=== PATIENT | male | born 1940 | race Caucasian/White ===

== ENCOUNTER 2016-04-22 08:25 | Day surgery (SDC) | payer MEDICARE, OTHER ==
[~2016-04-22] VITALS: Ht 177.8 cm; Wt 81.6 kg
[~2016-04-22 08:25] MED LIST: ASCO-294 PO; ASPI325T32 PO; BLUE500T PO; CHOL100045 PO; COD1CAPS16 PO; GABA-502 PO; HYDR-4003 PO; INSU100I13 SUBQ; INSU100I18 SUBQ; LISI-571 PO; NPH,100V10 SUBQ; OMEP40CA36 PO; PRAV20TA2 PO; Sodium Chloride LOK Flush 10 mL Syringe IV PRN; fentaNYL-PF 50 mCg/mL 2 mL Inj IVPUSH PRN
[2016-04-22 09:18] VITALS: BP 142/81; PULSE 71; RESP 17; O2SAT 99
[2016-04-22] MEDS: 0.9% Sodium Chloride 1,000 ML IV PRN ×3 (10:17→10:42)
--- NOTE | 2016-04-22 10:45 | PCM.ENDCOL ---
Colonoscopy Date of Service: Apr 22, 2016 Physician Campbell Elkins MD Indication for Procedure Screening and personal history of hyperplastic polyps Post Procedure Dx & Findings: Polyp hemorrhoids diverticuli Procedure Colonoscopy Prep adequate Withdrawal 11 min PROCEDURE IN DETAIL: After unremarkable rectal examination Olympus video colonoscope was inserted into patient's anal canal and was advanced to cecum. Landmarks were identified including discussed above and the appendiceal orifice. Scope was withdrawn systematically. The mucosa of the cecum, ascending, transverse, descending, sigmoid, rectal mucosa lined with whitish, pink, smooth, glistening, normal-appearing mucosa, normal fine branching, underlying vascularity, normal haustra. The patient tolerated procedure and was transported to observation area. In the ascending colon there was a 1 mm polyp which was resected completely using cold forceps. In the transverse colon there was a 3 mm polyp which was resected completely with cold snare. During the retrieval process, the 3 mm polyp appeared to be have been disintegrated due to pnemo-trauma. The descending colon there was a 1 mm polyp which was resected completely using cold forceps. In the sigmoid colon and up to the transverse colon, there were a few isolated small to medium size diverticula. In the rectum retroflexion was done which showed hemorrhoids and anal canal was inspected carefully on the way out and mild hemorrhoids noted. Impression Polyp 3 status post complete removal. 3 mm polyp was disintegrated during the process. Hemorrhoids Diverticuli Recommendation Repeat colonoscopy 3 years Diverticular diet Presedation Assessment Risks and Benefits Informed consent was obtained from the patient after all risks and benefits including but not limited to drug reaction, infection, pain, bleeding, perforation, as well as alternatives were discussed. Patient monitoring Continuous pulse oximetry, cardiac monitoring, blood pressure monitoring, IV access, and oxygen at 2L per nasal cannula. Periprocedural Fentanyl: Fentanyl 75mcg Incrementally Midazolam: Midazolam 4mg Incrementally Complications There were no periprocedural complications identified. Post Procedure Plan Post Procedure Recommendations 1. Restrict activities today. 2. Resume normal activities in the morning. 3. Resume medications. 4. Patient informed of normal post procedure side effects as bloating, drowsiness, blood streaking in the stool. 5. average risk CRCS. If colon polyps come back as: -Hyperplastic- can repeat colonoscopy in 10 years -Tubular adenoma- repeat colonoscopy in 5 years -Tubulovillous/villous adenoma- repeat colonoscopy in 3 years -If any dysplasia- return to clinic as soon as possible 6. Please don't hesitate to call me with any questions. Campbell Elkins MD Apr 22, 2016 10:45
[2016-04-22 10:50] VITALS: BP 161/73; PULSE 60; RESP 14; O2SAT 100
[2016-04-22 10:58] VITALS: BP 136/74; PULSE 71; RESP 14; O2SAT 100
--- NOTE | 2016-04-23 13:42 | PATH ---
SURGICAL PATHOLOGY Attending Physician:Campbell Elkins M.D. CASE STATUS: Signed Out PATIENT NAME: AUGIE LEHMAN PID: [id number] : 1940 DATE COLLECTED:04/22/2016 00:00 SPECIMEN: 1: Colon, Biopsy 2: Colon, Biopsy CLINICAL HISTORY: HX COLON POLYP COLON POLYPS 1). ASCENDING COLON POLYP 2). DESCENDING COLON POLYP FINAL DIAGNOSIS: 1.ASCENDING COLON POLYP: SMALL TUBULAR ADENOMA. 2.DESCENDING COLON POLYP: POLYPOID-SHAPED FRAGMENT OF COLON MUCOSA CONSISTENT WITH MUCOSAL POLYPOID REDUNDANCY. NEGATIVE FOR DYSPLASIA AND MALIGNANCY. ICD10 CODE D12.2 GROSS DESCRIPTION: The specimen is received in two formalin filled containers labeled with the patient's name. 1). The specimen is sublabeled "ascending colon polyp" and consists of a 0.2 x 0.2 x 0.2 CM portion of tissue which is entirely submitted in cassette 1A. 2). The specimen is sublabeled "descending colon polyp" and consists of a 0.2 x 0.2 x 0.2 CM portion of tissue which is entirely submitted in cassette 2A. 04/23/2016 [facility] MICRO DESCRIPTION: See diagnosis. ICD-9 CODES: CPT CODES: 1: 59626 2: 11350 Electronically Signed Out Benitez Banks MD [facility] [address], [place] [address] Technical component performed at [facility], [facility] [address], [place], [address]
== END 2016-04-22 23:59 | disposition home or self-care (01) ==
LOC: END 08:25
PROVIDERS: ATTEND Internal Medicine
DX: Z12.11 Encounter for screening for malignant neoplasm of colon (principal); D12.2 Benign neoplasm of ascending colon; D12.4 Benign neoplasm of descending colon; K57.30 Diverticulosis of large intestine without perforation or abscess without bleeding; K64.8 Other hemorrhoids; I10 Essential (primary) hypertension; E11.9 Type 2 diabetes mellitus without complications; Z86.010 Personal history of colon polyps; Z79.82 Long term (current) use of aspirin; Z79.899 Other long term (current) drug therapy